=== PATIENT | female | born 1985 | race Caucasian/White ===

== ENCOUNTER 2017-08-13 09:54 | Inpatient (IN) ==
[2017-08-13] MEDS ORDERED: Oxytocin 20 units/ LR 1000 mL 20 UNIT/1,000 ML BAG IVC ONE (10:47)
[2017-08-13] MEDS ORDERED: Famotidine 20 MG/2 ML VIAL IVP ONE (10:47)
[2017-08-13] MEDS ORDERED: Metoclopramide 10 MG/2 ML VIAL IVP ONE (10:47)
[2017-08-13] MEDS ORDERED: Ringers Solution, Lactated 1,000 ML IVC ONE (10:47)
[2017-08-13] MEDS ORDERED: CeFAZolin Pre 3,000 MG/100 ML 3,000 MG/100 ML BAG IVPB ONE (10:47)
[2017-08-13] MEDS ORDERED: Oxytocin 20 units/ LR 1000 mL 20 UNIT/1,000 ML BAG IVC SCH ×2 (11:00→19:41)
[2017-08-13] MEDS ORDERED: Ringers Solution, Lactated 1,000 ML IVC SCH ×2 (11:00→13:30)
--- NOTE | 2017-08-13 11:09 | Anesthesia Evaluation PreOp ---
Date of Encounter: 08/13/17 Time of Encounter: 11:07 - Past History Planned Operation: Repeat csection Cardiac History: Denies any Significant Hx Pulmonary History: Denies Any Significant HX ADVERTISING SALES CONSULTANT History: Denies Any Significant HX Other Medical History: Denies Any Significant HX, GERD, Other (obesity, anemia) Anesthesia History: No Prior Anesthetic Complications, Past Anesthesia (wisdom teeth extraction, previous epidural) : Yes Alcohol Use: none Drug use: none Medications and Allergies Vit/FA 1 each PO DAILY 08/31/15 [History] Ferrous Sulfate 325 mg PO DAILY #30 tablet 09/03/15 [Rx] PriLOSEC 08/13/17 [History] 3 Allergy/AdvReac Type Severity Reaction Status Date / Time No Known Allergies Allergy Verified 08/31/15 13:22 - Meds/Allergy Pre-op Review Medications Reviewed: Yes Allergies Reviewed: Yes Beta Blockers on Current Med List: No Anesthesia Exam BP 139/79 P 85 R16 T98.9 Height: 5'4" Weight: 121.8kg NPO (# of Hours): 10 Pain Scale: 0 Pain Scale Used: Numeric (1 - 10) - HEENT Pupil (Motor): Pupils equal Mallampati: II Teeth: Normal Oral Opening: Greater than 3 - ADVERTISING SALES CONSULTANT LOC: Oriented ADVERTISING SALES CONSULTANT Motor: Normal RUE, Normal LUE, Normal RLE, Normal LLE, Normal Face ADVERTISING SALES CONSULTANT Sensory: Normal: RUE, LUE, RLE, LLE, Face - Cardiac Rhythm: Regular Murmur: None JVD: No Carotid Bruit: No - Pulmonary Breath Sounds: bilateral Clear Respiratory Effort: Symmetrical Anesthesia Assess/Plan ASA Score: 2 Modified [place] Scale for Level of Consciousness: Cooperative, oriented, and tranquil Anesthetic Plan: Regional Autologous Blood: No Monitoring Plan: Standard Monitors Recovery Plan: PACU
[2017-08-13 11:14] LABS: Amphetamine Screen,Urine Negative ng/mL (Cutoff=1000); Barbiturate Screen,Urine Negative ng/mL (Cutoff=200); Benzodiazepines Screen,Urine Negative ng/mL (Cutoff=200); Cannabinoid Screen,Urine Negative ng/mL (Cutoff = 50); Cocaine Screen,Urine Negative ng/mL (Cutoff= 300); Opiate Screen,Urine Negative ng/mL (Cutoff=300); Phencyclidine Screen,Urine Negative ng/mL (Cutoff=25)
[2017-08-13 11:19] LABS: Hematocrit 35.3 % (35.3-44.9); Hemoglobin 11.6 g/dL (11.5-15.4); Immature Granulocytes % 0.5 % (0-4); Mean Corpuscular HGB Conc 32.9 g/dL (31.6-35.5); Mean Corpuscular Hemoglobin 30.1 pg (28.0-33.3); Mean Corpuscular Volume 91.5 fL (83.0-100.0); Mean Platelet Volume 11.3 fL (9.4-12.4); Monocytes % 4.4 %; Platelet Count 188 K/mcL (140-400); Red Blood Count 3.86 M/mcL (3.82-4.97); Red Cell Distribution Width 13.7 % (11.5-14.5); Segmented Neutrophils % 77.3 %
[2017-08-13 11:20] LABS: Basophils % 0.2 %; Eosinophils % 0.6 %; Lymphocytes # 1.1 K/mcL (0.6-4.6); Monocytes # 0.3 K/mcL (0.0-1.3); Neutrophils # 5.1 K/mcL (1.6-8.9)
--- NOTE | 2017-08-13 11:27 | OB/GYN History & Physical ---
Date of Encounter: 08/13/17 Time of Encounter: 11:10 Assessment and Plan (1) 39 weeks gestation of Current visit: No Status: Acute Patient is scheduled for repeat . - 3g Cefazolin - IV fluids - Pitocin - NPO diet - CBC History of Present Illness Chief complaint: Scheduled HPI: Ms. Melton is a 31 year old female at 39 wks gestation that presents for a scheduled repeat . She admits to good movement and denies any contractions. She denies any vaginal fluid leakage or bleeding. She currently denies any VYAS but admits that she has been having them on a weekly basis. She has a history of migranes. She denies shortness of breath, chest pain, fever, chills, nausea, and vomiting. GBS: negative HepBSAb: non-reactive (02/03/17) HIV Ag/Ab: non-reactive Rubella Ab: positive Varicella Ab: positive Blood type: O+ T. pallidum: negative Past Med Surg Social Fam HX - Past Medical History Medical history: no medical history Psychiatric history: no psych history - Past Surgical History Surgical History: - Social History Smoking Status: Never smoker Smokeless Tobacco Status: No Alcohol use: none Drug use: none - Family History Father Living Status: Still Living Hx Family Cardiac Disorders: Yes (HYPERTENSION) Mother Living Status: Still Living Hx Family Cardiac Disorders: Yes (high blood pressure) Hx Family Respiratory Disorders: No Hx Family Cancer: No Hx Family GI Disorders: No Hx Family Endocrine Disorder: No Hx Family Neuromuscular Disorders: No Hx Family Neurologic Disorders: No Hx Family HEENT Disorders: No Hx Family Autoimmune Disorders: No Obstetrical History - Pregnancies : 2 Para: 1 Term: 1 : 0 Ab's: 0 Livin Medications and Allergies Vit/FA 1 each PO DAILY 08/31/15 [History] Ferrous Sulfate 325 mg PO DAILY #30 tablet 09/03/15 [Rx] PriLOSEC 08/13/17 [History] 3 Allergy/AdvReac Type Severity Reaction Status Date / Time No Known Allergies Allergy Verified 08/31/15 13:22 Exam - Constitutional Constitutional: well developed, well nourished, no acute distress, obese - Lungs Respiratory exam: CTAB - Cardiovascular Cardiovascular exam: RRR, +S1, +S2 - Abdomen Abdomen: Present: bowel sounds normal, gravid, non tender - Extremities Extremities exam: normal capillary refill, normal inspection, radial pulses palpable and symmetrical Deep Tendon Reflex Grade: 2+ Normal Results Result Diagrams: 08/13/17 10:30 All other labs normal.
[2017-08-13] MEDS ORDERED: *HR* Morphine Sulfate/PF 5 MG/10 ML AMPUL ONE (13:15)
[2017-08-13] MEDS ORDERED: *HR* Promethazine 25 MG/ML VIAL IVP PRN ×2 (13:19→19:41)
[2017-08-13] MEDS ORDERED: *HR* HYDROmorphone (PF) 1 MG/ML SYRINGE IVP PRN ×3 (13:19→19:41)
[2017-08-13] MEDS ORDERED: Ondansetron 4 MG/2 ML VIAL IVP ONE ×2 (13:19→19:41)
[2017-08-13] MEDS ORDERED: *HR* Meperidine 25 MG/ML SYRINGE IVP PRN (13:19)
[2017-08-13] MEDS ORDERED: Dexamethasone 4 MG/ML VIAL IVP ONE (13:19)
[2017-08-13] MEDS ORDERED: EPHEDrine 50 MG/ML VIAL ONE (13:26)
--- NOTE | 2017-08-13 14:17 | Anesthesia Procedures ---
Date of Encounter: 08/13/17 Time of Encounter: 14:15 Procedures: Anesthesia - Epidural/Spinal Patient ID/Chart reviewed: Yes Patient examined: Yes OB Eval: Gestational age: 39 OB Eval: : 2 OB Eval: Hx Para: 1 OB Eval: Contractions: Non-stressed pattern Consent Obtained: Yes Supplemental Oxygen: None/Room Air Site Prep: Aseptic Technique, Sterile prep and drape, Povidone-Iodine 1% Patient position: upright Local Anesthetic: Lidocaine 1% Amount of Local Anesthetic used: 3 Loss of Resistance (NATO): No Blood: No CSF: Yes Paresthesia: No Spinal Needle Gauge: 25 Spinal Dose: Bupivicaine 0.75% 1.6ml morphine 250mcg Procedure: Intrathecal dose after 1st pass spinal in upright position. No immediate noted complications noted. VSS throughout. Vitals + FHT's: See anesthesia record
[2017-08-13] MEDS ORDERED: Dexamethasone 4 MG/ML VIAL ONE (14:30)
[2017-08-13] MEDS ORDERED: Ondansetron 4 MG/2 ML VIAL ONE (14:30)
[2017-08-13] MEDS ORDERED: *HR* Oxytocin 10 UNIT/ML VIAL IM ONE ×2 (14:30→14:37)
[2017-08-13] MEDS ORDERED: *HR* Phenylephrine 10 MG/ML VIAL ONE (14:32)
[2017-08-13] MEDS ORDERED: Ondansetron 4 MG/2 ML VIAL IVP PRN ×2 (17:24→19:41)
[2017-08-13] MEDS ORDERED: Naloxone 0.4 MG/ML INJ IVP PRN ×2 (17:24→19:41)
[2017-08-13] MEDS ORDERED: *HR* Morphine 2 MG/ML SYRINGE IVP PRN ×2 (17:24→19:41)
--- NOTE | 2017-08-13 17:30 | Anesthesia Evaluation Post Op ---
Date of Encounter: 08/13/17 Time of Encounter: 17:28 - Vital Signs Vital Signs: BP 144/92 P 96 R 16 spo2 96 - Lungs Lungs: Clear Ascult./Percussion - Airway Airway: Non-obstructed - Cardiovascular Regular Rate - Mental Status Mental Status: Alert & Oriented, Answers Appropriately - Pain Pain Scale: 4 Pain Scale used: Numeric (1 - 10) - Nausea Vomiting Nausea Vomiting: Not Present - Hydration Hydration: NPO, Croft catheter - Discharge PostOp Status: Transfer Patient to floor
--- NOTE | 2017-08-13 17:31 | OB/GYN Procedure Note ---
Section - Date of procedure: 08/13/17 Preop diagnosis: desires repeat Post-op diagnosis: same Procedure: section, repeat low transverse Surgeon: Aleksandra Marks Estimated blood loss (cc): 350 Director Student [employer]: Candy Watkins Network Account Manager: Jassi Zhao Anesthesia Type: Spinal section complications: none Disposition: L&D Recovery Room Specimens: Placenta, Cord blood - Infant (s) A Infant Delivery Date: 08/13/17 Infant Delivery Time: 14:02 Presentation: vertex Position: unknown Gender: Male Viability: Viable Pounds: 6 Ounces: 15 Gram Weight: 3.145 kg at 1 minute: 8 at 5 minutes: 9 Shoulder Dystocia: not encountered Specimens collected: cord blood Placenta: spontaneous Cord: nuchal cord, nuchal reduced - Narrative Narrative: Patient was taken to the operative suite and placed under spinal anesthetic. She was then prepped and draped in normal sterile fashion in the dorsal supine position. Timeout was then performed. Antibiotics were given at room time. SCDs are on and active. Pfannenstiel skin incision is then made and carried through to underlying layer of fascia with the Bovie. The fascia was then incised in the midline and incision extended laterally with the Arita scissors. The fascia was tented up and dissected off the rectus muscles sharply. The rectus muscles were in the midline and the peritoneum was tented up and entered sharply with the Metzenbaum scissors. The peritoneal incision was then extended bluntly. T A low transverse uterine incision was then made. The infant [default value]was brought to the incision and the was delivered using fundal pressure. There was a loose nuchal cord that was reduced. Cord was clamped and cut. Infant was handed to waiting nursery staff. Placenta delivered spontaneously complete and intact with a three-vessel cord. The uterus was cleared of all clots and debris using moist laparotomy sponge. The uterine incision was then closed using 0 Vicryl in a running locked fashion. A second layer of the same suture was used with a couple figure of eight sutures to obtain excellent hemostasis. The abdomen was then cleared of all clots and debris using copious irrigation. The fascial incision was then closed using 0 PDS in a running fashion. The skin was closed using 4-0 Vicryl in a subcuticular fashion. Steri-Strips and Roberta dressing are then placed. Mother and taken to recovery in stable condition.
[2017-08-13] MEDS ORDERED: Simethicone 80 MG TAB.CHEW PO PRN (19:41)
[2017-08-13] MEDS ORDERED: Acetaminophen 325 MG TABLET PO PRN (19:41)
[2017-08-13] MEDS ORDERED: Sennosides 8.6 MG TABLET PO PRN (19:41)
[2017-08-13] MEDS ORDERED: Metoclopramide 10 MG/2 ML VIAL IVP PRN (19:41)
[2017-08-13] MEDS: *HR* OxyCODONE/APAP 5/325 TABLET PO PRN (20:39)
[2017-08-14] MEDS: *HR* OxyCODONE/APAP 5/325 TABLET PO PRN ×4 (04:12→20:06)
[2017-08-14] MEDS: Ibuprofen 600 MG TABLET PO PRN ×2 (04:13→19:00)
[2017-08-14] MEDS: Prenatal Vit/FA 1 EACH TABLET PO SCH (08:49)
--- NOTE | 2017-08-14 09:10 | OB/GYN Progress Note ---
Date of Encounter: 08/14/17 Time of Encounter: 09:08 - Assessment and Plan (1) Status post repeat low transverse section Current Visit: Yes Status: Acute Routine /postop care Anticipate discharge tomorrow. (2) Breast feeding status of mother Current Visit: Yes Status: Acute support prn Subjective - Subjective Principal diagnosis: Status post repeat section Interval history: Pt sitting up in bed nursing . States she is doing well and anticipates discharge tomorrow. States she is tolerating her regular diet and bleeding is light. Patient reports: appetite normal, voiding normally, pain well controlled, ambulating normally Regan: doing well, nursing well Objective - Vital Signs Latest vital signs: Vital Signs Temp Pulse Pulse Resp BP Pulse Ox 08/14/17 04:00 97.6 F 78 16 114/75 97 08/13/17 23:34 98.1 F 84 15 103/68 95 08/13/17 19:45 97.7 F 90 18 118/82 96 08/13/17 18:45 97.6 F 92 92 16 129/86 97 08/13/17 17:45 97.8 F 92 92 16 129/86 97 08/13/17 17:15 97.8 F 96 96 16 126/79 97 08/13/17 16:45 97.8 F 92 92 16 128/76 98 08/13/17 16:15 97.8 F 96 96 16 120/74 98 Intake and Output 08/13/17 08/14/17 08/14/17 23:59 07:59 15:59 Intake Total 240 / 240 Output Total 100 / 100 1200 / 1200 Balance 140 / 140 -1200 / -1200 Intake: Oral 240 / 240 Output: Catheter 100 / 100 1200 / 1200 Other: Stool Characteristics Normal for Patient Weight 120.1 kg 120.656 kg Patient Weight 08/14/17 23:59 Weight 120.656 kg - Exam Lungs: bilateral: normal Chest: Normal S1, Normal S2 Extremities: Present: normal Abdomen: Present: normal appearance, soft Incision: Present: dressed (Roberta dressing intact) Uterus: Present: normal, firm Fundal Height: 2 (u/2) - Labs Labs: Laboratory Results - last 24 hr 08/13/17 08/13/17 10:30 10:52 WBC 6.5 RBC 3.86 Hgb 11.6 Hct 35.3 MCV 91.5 MCH 30.1 MCHC 32.9 RDW 13.7 Plt Count 188 MPV 11.3 Immature Gran % 0.5 Seg Neutrophils % 77.3 Lymphocytes % 17.0 Monocytes % 4.4 Eosinophils % 0.6 Basophils % 0.2 Neutrophils # 5.1 Lymphocytes # 1.1 Monocytes # 0.3 Eosinophils # 0.0 Basophils # 0.0 Urine Opiates Screen Negative Ur Barbiturates Screen Negative Ur Phencyclidine Scrn Negative Ur Amphetamines Screen Negative U Benzodiazepines Scrn Negative Urine Cocaine Screen Negative U Marijuana (THC) Screen Negative
[2017-08-15] MEDS: *HR* OxyCODONE/APAP 5/325 TABLET PO PRN ×2 (00:34→06:37)
[2017-08-15] MEDS: Ibuprofen 600 MG TABLET PO PRN (06:36)
[2017-08-15 08:29] VITALS: BP 120/79
[2017-08-15] MEDS: Prenatal Vit/FA 1 EACH TABLET PO SCH (08:51)
--- NOTE | 2017-08-15 09:27 | Discharge Summary ---
Date of Encounter: 08/15/17 Time of Encounter: 09:15 - Discharge Diagnosis (1) Status post Priority: Primary Status: Acute Comments: Doing well s/p CS day 2. Pain is well controlled Bottle feeding VSS Lochia is light and w/o clots. Tolerating regular diet, voiding and passing flatus without difficulty. Discharge home today. - Discharge Medications Prescriptions: Ibuprofen [Motrin] 600 mg PO Q6HR PRN #60 tablet PRN Reason: Cramping OxyCODONE/APAP 5/325 [Percocet 5/325 MG] 1 each PO Q6HR PRN #20 tablet PRN Reason: Moderate pain 4-6 Docusate [Colace] 100 mg PO BID #30 capsule Home Medications: Vit/FA 1 each PO DAILY 08/31/15 [History] PriLOSEC 08/13/17 [History] Docusate [Colace] 100 mg PO BID #30 capsule 08/15/17 [Rx] Ibuprofen [Motrin] 600 mg PO Q6HR PRN #60 tablet 08/15/17 [Rx] OxyCODONE/APAP 5/325 [Percocet 5/325 MG] 1 each PO Q6HR PRN #20 tablet 08/15/17 [Rx] Allergies/Adverse Reactions: 3 Allergy/AdvReac Type Severity Reaction Status Date / Time No Known Allergies Allergy Verified 08/31/15 13:22 Data Procedures and tests throughout hospitalization: Laboratory Tests 08/13/17 08/13/17 10:30 10:52 WBC 6.5 RBC 3.86 Hgb 11.6 Hct 35.3 MCV 91.5 MCH 30.1 MCHC 32.9 RDW 13.7 Plt Count 188 MPV 11.3 Immature Gran % 0.5 Seg Neutrophils % 77.3 Lymphocytes % 17.0 Monocytes % 4.4 Eosinophils % 0.6 Basophils % 0.2 Neutrophils # 5.1 Lymphocytes # 1.1 Monocytes # 0.3 Eosinophils # 0.0 Basophils # 0.0 Urine Opiates Screen Negative Ur Barbiturates Screen Negative Ur Phencyclidine Scrn Negative Ur Amphetamines Screen Negative U Benzodiazepines Scrn Negative Urine Cocaine Screen Negative U Marijuana (THC) Screen Negative Date of admission: 08/13/17 09:54 Primary care physician: PCP NONE Discharging clinician: Paulie Flannery Anticipated date of discharge: 08/15/17 - Patient Status Disposition: Home, Self-Care Condition: Good Functional capacity at discharge: independent ambulation Overall status at discharge: patient is progressing back to baseline - Discharge Instructions Follow Up With: NONE,PCP [Primary Care Provider] - Aleksandra Marks DO [Partnered Physician] - Additional Instructions: Perineal Care: Always wipe front to back Change your pad frequently Use your reinaldo bottle with warm water and spray front to back Do not douche, use tampons, have sexual intercourse or put anything in your vagina for 4-6 weeks after delivery Bleeding: Vaginal bleeding can last up to 6 weeks Your menstrual period may return as early as 6 weeks after you are discharged from the hospital Rosalind/Stitches Care: Vaginal Delivery Vaginal stitches will dissolve within 4-6 weeks Follow perineal care instructions Care Stitches will dissolve on their own If you have rosalind, they will need to be removed in the doctors office within 5-7 days. You may shower with stitches or rosalind Drip plan or soapy water over the incision to clean. Pat dry gently with a clean towel. Make sure you completely dry under the skin folds DO NOT USE powders, lotions, rubbing alcohol or hydrogen peroxide on or around your incision. This will slow your wound healing It is normal to have soreness, burning, tingling, itchiness and/or numbness as your incision heals Activity: Rest frequently Do not lift anything heavier than a gallon of milk, up to 10-15 pounds No driving for 1-2 weeks for Vaginal delivery No driving for 2-4 weeks for delivery Take stairs slowly, one at a time Gradually increase your daily activity until you are back to your normal routine Do not exercise until you have had your follow-up appointment Bathing: Take a shower daily Do not take a tub bath for the first 4 weeks Diet: Drink plenty of water and fruit juices Eat a well-balanced diet with foods high in fiber such as fruits and vegetables Depression: Your hormones have a major impact on your feelings and emotions. Hormone imbalance may cause changes in your mood, creating unfamiliar thoughts and actions. Support is available to help you understand and cope with these feelings and mood changes. If you answer yes to any of the following questions, please call your health care provider: Are you having trouble sleeping? Are you feeling isolated? Have you lost your appetite? Are you having thoughts of hurting yourself or others? WARNING SIGNS: Heavy bleeding from the vagina (blood is bright red and soaks a sanitary pad in an hour or less.) Passing a blood clot larger than your fist Discharge from the vagina that has a bad odor Temperature over 100.4 F, or if you feel cold and have chills An episiotomy site that is warm, swollen or oozing. Use a mirror if needed Urination (pee) that is painful, very red and swollen or leaking fluid An incision that is painful, very red and swollen and leaking fluid An incision that has come open Breasts that are painful or full with flu like symptoms Redness, warmth or swelling in the calf of your leg Trouble breathing, dizziness, visual disturbance or faintness *Notify your health care provider immediately or go to the nearest Emergency Room if you experience any of the above signs.* To contact the nurses station 24 hours a day, For non-urgent, routine questions, please call the office at - Diet and Activity Activity: resume usual activities as tolerated Diet: regular diet Hospital Course Reason for admission: section Delivery: section Laceration: none Other procedures: none complications: none Discharge diagnosis: IUP at term delivered [place] baby: male Hospital course: Ms. Melton is a 31 year old female that was at 39 wks gestation that presented for a scheduled repeat . She admitted to good movement and denied any contractions. She denied any vaginal fluid leakage or bleeding. Patient was taken to the operative suite and placed under spinal anesthetic. She was then prepped and draped in normal sterile fashion in the dorsal supine position. Timeout was then performed. Antibiotics were given at room time. SCDs are on and active. Pfannenstiel skin incision is then made and carried through to underlying layer of fascia with the Bovie. The fascia was then incised in the midline and incision extended laterally with the Arita scissors. The fascia was tented up and dissected off the rectus muscles sharply. The rectus muscles were in the midline and the peritoneum was tented up and entered sharply with the Metzenbaum scissors. The peritoneal incision was then extended bluntly. T A low transverse uterine incision was then made. The infant [default value]was brought to the incision and the infant was delivered using fundal pressure. There was a loose nuchal cord that was reduced. Cord was clamped and cut. was handed to waiting nursery staff. Placenta delivered spontaneously complete and intact with a three-vessel cord. The uterus was cleared of all clots and debris using moist laparotomy sponge. The uterine incision was then closed using 0 Vicryl in a running locked fashion. A second layer of the same suture was used with a couple figure of eight sutures to obtain excellent hemostasis. The abdomen was then cleared of all clots and debris using copious irrigation. The fascial incision was then closed using 0 PDS in a running fashion. The skin was closed using 4-0 Vicryl in a subcuticular fashion. Steri-Strips and Roberta dressing are then placed. When seen today, patient says that she is in good mood and the baby is doing well. She is breast feeding the baby well. She admits to minor abdominal discomfort, but she is able to ambulate well independently. She says she has very little vaginal bleeding. She denies any headaches, vision changes, nausea, vomiting, chest pain, shortness of breath, fever, or chills. She has a follow- up appointment with Dr. Marks on 08/28/17. - Date of procedure: 08/13/17 Preop diagnosis: desires repeat Post-op diagnosis: same Procedure: section, repeat low transverse Surgeon: Aleksandra Marks Estimated blood loss (cc): 350 Psychology Clinician: Candy Watkins Meat Grading Machine Operator: Jassi Zhao Anesthesia Type: Spinal section complications: none Disposition: L&D Recovery Room Specimens: Placenta, Cord blood - (s) Infant A Delivery Date: 08/13/17 Infant Delivery Time: 14:02 Presentation: vertex Position: unknown Gender: Male Viability: Viable Pounds: 6 Ounces: 15 Gram Weight: 3.145 kg at 1 minute: 8 at 5 minutes: 9 Shoulder Dystocia: not encountered Specimens collected: cord blood Placenta: spontaneous Cord: nuchal cord, nuchal reduced Time Attestation: Total time spent providing and/or coordinating discharge services: - VTE Documentation of Mechanical Device: Intermittent pneumatic compression device - Attending Attestation I examined this patient and my medical decision-making was reviewed with the Resident Physician. I agree with the documented findings, disposition and treatment plan as described..Jackie Atkins CNM Exam - Constitutional Vitals: Temp Pulse Resp BP Pulse Ox 98.2 F 80 16 120/79 98 08/15/17 07:30 08/15/17 07:30 08/15/17 07:30 08/15/17 07:30 08/14/17 19:50 General appearance IM: A&O X 3, no acute distress, obese, answers questions appropriately - Respiratory Respiratory exam: Present: CTAB - Cardiovascular Cardiovascular exam IM: Present: RRR, +S1, +S2 - GI/Abdominal GI/Abdominal exam IM: normal bowel sounds, soft, tenderness (Minor diffuse tenderness. ) Incision: normal, dry, intact - Uterine Tone: Firm - Extremities Exam Extremities exam IM: Present: full ROM, normal capillary refill, normal inspection, radial pulses palpable and symmetrical. Absent: pedal edema, tenderness - Neurological Exam Neurological exam: reflexes normal
== END 2017-08-15 13:14 | disposition home or self-care (01) | DRG 540 ==
LOC: 1NENULAB 09:54 → 1NENUOBS 19:35
PROVIDERS: ADMIT Obstetrics & Gynecology; ATTEND Obstetrics & Gynecology

== ENCOUNTER 2019-12-31 10:03 | Observation (INO) ==
[~2019-12-31 10:03] MED LIST: Ringers Solution, Lactated 1,000 ML IV.SOLN ONE
[2019-12-31 10:48] LABS: Bilirubin,Urine Negative (Negative); Blood,Urine Negative (Negative); Clarity,Urine Cloudy (Clear); Color,Urine Yellow (Yellow); Glucose,Urine (UA) Normal (Normal); Ketones,Urine Negative (Negative); Leukocyte Esterase,Urine Large (Negative); Nitrite,Urine Negative (Negative); Protein,Urine Negative (Neg-Trace); Specific Gravity,Urine 1.017 (1.010-1.025); Urobilinogen,Urine Normal (Normal)
[2019-12-31 10:50] LABS: Basophils % 0.2 %; Eosinophils # 0.2 K/mcL (0.0-0.6); Eosinophils % 2.2 %; Hematocrit 38.7 % (35.3-44.9); Hemoglobin 12.5 g/dL (11.5-15.4); Immature Granulocytes % 0.4 % (0-4); Lymphocytes # 1.8 K/mcL (0.6-4.6); Lymphocytes % 21.9 %; Mean Corpuscular HGB Conc 32.3 g/dL (31.6-35.5); Mean Corpuscular Hemoglobin 29.6 pg (28.0-33.3); Mean Corpuscular Volume 91.7 fL (83.0-100.0); Mean Platelet Volume 10.5 fL (9.4-12.4); Monocytes # 0.3 K/mcL (0.0-1.3); Monocytes % 3.7 %; Neutrophils # 5.8 K/mcL (1.6-8.9); Platelet Count 243 K/mcL (140-400); Red Blood Count 4.22 M/mcL (3.82-4.97); Red Cell Distribution Width 12.2 % (11.5-14.5); Segmented Neutrophils % 71.6 %; White Blood Count 8.1 K/mcL (4.3-11.1)
[2019-12-31 11:09] LABS: RBC,Urine 0-3 per hpf (0-3); Squamous Epithelial Cell,Urine Moderate per lpf (None-Few); WBC,Urine 0-3 per hpf (0-3)
[2019-12-31 11:10] LABS: Bacteria,Urine Few per hpf (None-Few)
[2019-12-31 11:16] LABS: Alanine Aminotransferase 39 Units/L (7-52); Albumin 4.5 g/dL (3.5-5.7); Alkaline Phosphatase 48 Units/L (34-104); Amylase 30 Units/L (29-103); Aspartate Amino Transferase 22 Units/L (13-39); BUN/Creatinine Ratio 9 (6-26); Bilirubin,Direct 0.1 mg/dL (0.0-0.2); Bilirubin,Indirect 0.3 mg/dL (0.0-1.0); Bilirubin,Total 0.4 mg/dL (0.3-1.0); Blood Urea Nitrogen 5 mg/dL (6-20); Calcium 9.4 mg/dL (8.6-10.3); Carbon Dioxide 25 mEq/L (23-29); Chloride 106 mEq/L (98-107); Globulin 2.2 g/dL (2.4-3.5); Glucose 102 mg/dL (70-105); Lipase 15 Units/L (11-82); Osmolality,Calculated 281 (280-300); Potassium 3.6 mEq/L (3.5-5.1); Sodium 137 mEq/L (136-145); Total Protein 6.7 g/dL (6.4-8.9); eGFR For African Americans > 60 (> 60); eGFR For Non-African Americans > 60 (> 60)
[2019-12-31] MEDS ORDERED: *HR* HYDROmorphone (PF) 1 MG/ML SYRINGE IVP ONE ×2 (14:09→15:13)
[2019-12-31] MEDS ORDERED: *HR* HYDROmorphone PF 0.5 MG/0.5 ML SYRINGE IVP PRN (15:23)
[2019-12-31] MEDS ORDERED: *HR* OxyCODONE Immed Rel 5 MG TABLET PO PRN (15:23)
[2019-12-31] MEDS ORDERED: Ondansetron 4 MG/2 ML VIAL IVP ONE (15:23)
[2019-12-31] MEDS ORDERED: *HR* Promethazine 25 MG/ML VIAL IVP PRN (15:23)
[2019-12-31] MEDS ORDERED: *HR* Propofol 200 MG/20 ML VIAL IVP ONE (15:29)
[2019-12-31] MEDS ORDERED: *HR* Midazolam HCl 2 MG/2 ML VIAL ONE (15:29)
[2019-12-31] MEDS ORDERED: *HR* FentaNYL (PF) 100 MCG/2 ML VIAL ONE (15:29)
[2019-12-31] MEDS ORDERED: Ondansetron 4 MG/2 ML VIAL ONE (15:32)
[2019-12-31] MEDS ORDERED: Dexamethasone 4 MG/ML VIAL ONE (15:32)
[2019-12-31] MEDS ORDERED: *HR* Rocuronium Bromide 50 MG/5 ML VIAL ONE (15:32)
[2019-12-31] MEDS ORDERED: *HR* Succinylcholine 200 MG/10 ML VIAL IVP ONE (15:32)
[2019-12-31] MEDS ORDERED: Lidocaine -MPF 2% 2 ML VIAL ONE (15:32)
[2019-12-31] MEDS ORDERED: Lidocaine HCL 4 ML Topical Solution (Laryng-O-Jet Kit Sterile Pak) TP ONE (15:55)
[2019-12-31] MEDS ORDERED: ceFAZolin 2,000 MG in Water for inj. (sterile) 20 ML IVP ONE (16:13)
[2019-12-31] MEDS ORDERED: *HR* HYDROMORPHONE 2 MG/ML VIAL ONE (16:15)
[2019-12-31] MEDS ORDERED: Ketorolac 30 MG/ML VIAL ONE (16:43)
[2019-12-31] MEDS ORDERED: *HR* HYDROmorphone (PF) 1 MG/ML SYRINGE IVP PRN (18:46)
[2019-12-31 21:46] VITALS: BP 140/79
== END 2019-12-31 19:38 | disposition home or self-care (01) ==
LOC: EMEROOARM 10:03 → 1NENUPED 10:03
PROVIDERS: ADMIT Obstetrics & Gynecology; ATTEND Obstetrics & Gynecology